=== PATIENT | male | born 1970 | race Caucasian/White ===

== ENCOUNTER 2017-05-18 15:27 | Emergency (ER) | payer OTHER, MEDICAID ==
[~2017-05-18] VITALS: Ht 177.8 cm; Wt 102.0 kg
[2017-05-18 15:27] VITALS: BP 134/88; PULSE 88; RESP 16; TEMP 98; O2SAT 96
[~2017-05-18 15:27] MED LIST: ATOM10 PO; OMEP10CA PO; TYLETAB34 PO; ZOFR4TAB3 SL
[2017-05-18 15:30] VITALS: BP 134/88; PULSE 88; RESP 16; O2SAT 96
[2017-05-18 17:27] LABS: AUTOMATED NEUTROPHIL # 4.3 TH/MM3 (1.8-7.7); BASOPHIL # 0.1 TH/MM3 (0-0.2); BASOPHIL % 0.9 % (0.0-2.0); EOSINOPHIL # 0.3 TH/MM3 (0-0.4); EOSINOPHIL % 3.6 % (0.0-4.0); HEMATOCRIT 44.4 % (39.0-51.0); HEMO FLAGS DIFF FINAL; LYMPH % 31.5 % (9.0-44.0); LYMPHOCYTE # 2.5 TH/MM3 (1.0-4.8); MEAN CELL VOLUME 86.9 FL (80.0-100.0); MEAN CORPUSCULAR HEMOGLOBIN 29.7 PG (27.0-34.0); MEAN CORPUSCULAR HGB CONC 34.2 % (32.0-36.0); MONO % 10.1 % (0.0-8.0); NEUT % 53.9 % (16.0-70.0); PLATELET COUNT 260 TH/MM3 (150-450); RED BLOOD COUNT 5.11 MIL/MM3 (4.50-5.90); RED CELL DISTRIBUTION WIDTH 13.7 % (11.6-17.2); WHITE BLOOD COUNT 8.1 TH/MM3 (4.0-11.0)
[2017-05-18 17:54] LABS: ALKALINE PHOSPHATASE 125 U/L (45-117); ALT (GPT) 78 U/L (12-78); ANION GAP 6 MEQ/L (5-15); AST (GOT) 60 U/L (15-37); BICARBONATE 30.1 MEQ/L (21.0-32.0); BLOOD UREA NITROGEN 12 MG/DL (7-18); CHLORIDE 103 MEQ/L (98-107); GLOMERULAR FILTRATION RATE 80 ML/MIN (>89); POTASSIUM 4.5 MEQ/L (3.5-5.1); SODIUM (NA) 139 MEQ/L (136-145); TOTAL BILIRUBIN ADULT 0.4 MG/DL (0.2-1.0)
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
--- NOTE | 2017-05-18 19:33 | PD ---
Physical Exam Date Seen by Provider: May 18, 2017 Time Seen by Provider: 19:31 Narrative The patient is a 47-year-old male was initially evaluated by the previous physician, Dr. Rivera. Please refer to the initial history, physical, diagnostic evaluation, treatment modality plan. Patient was signed out at 7 PM with MRI pending. Data Data Last Documented VS Vital Signs Date Time Temp Pulse Resp B/P Pulse Ox O2 Delivery O2 Flow Rate FiO2 05/18/17 20:12 98.4 86 18 137/99 97 Room Air Orders Complete Blood Count With Diff (05/18/17 16:41) Comprehensive Metabolic Panel (05/18/17 16:41) Iv Access Insert/Monitor (05/18/17 16:41) Lipase (05/18/17 16:41) Mri Brain W&W/O Contrast (05/18/17 18:04) Mra Brain W/O Contrast (Cow) (05/18/17 18:04) Mra Carotids W Contrast (05/18/17 18:04) Acetaminophen (Tylenol) (05/18/17 19:45) Gadodiamide Pf Inj (Omniscan Pf Inj) (05/18/17 20:31) Labs Laboratory Tests Test 05/18/17 16:40 White Blood Count 8.1 TH/MM3 Red Blood Count 5.11 MIL/MM3 Hemoglobin 15.2 GM/DL Hematocrit 44.4 % Mean Corpuscular Volume 86.9 FL Mean Corpuscular Hemoglobin 29.7 PG Mean Corpuscular Hemoglobin 34.2 % Concent Red Cell Distribution Width 13.7 % Platelet Count 260 TH/MM3 Mean Platelet Volume 8.4 FL Neutrophils (%) (Auto) 53.9 % Lymphocytes (%) (Auto) 31.5 % Monocytes (%) (Auto) 10.1 % Eosinophils (%) (Auto) 3.6 % Basophils (%) (Auto) 0.9 % Neutrophils # (Auto) 4.3 TH/MM3 Lymphocytes # (Auto) 2.5 TH/MM3 Monocytes # (Auto) 0.8 TH/MM3 Eosinophils # (Auto) 0.3 TH/MM3 Basophils # (Auto) 0.1 TH/MM3 CBC Comment DIFF FINAL Differential Comment Sodium Level 139 MEQ/L Potassium Level 4.5 MEQ/L Chloride Level 103 MEQ/L Carbon Dioxide Level 30.1 MEQ/L Anion Gap 6 MEQ/L Blood Urea Nitrogen 12 MG/DL Creatinine 1.00 MG/DL Estimat Glomerular Filtration 80 ML/MIN Rate Random Glucose 73 MG/DL Calcium Level 10.2 MG/DL Total Bilirubin 0.4 MG/DL Aspartate Amino Transf 60 U/L (AST/SGOT) Alanine Aminotransferase 78 U/L (ALT/SGPT) Alkaline Phosphatase 125 U/L Total Protein 7.9 GM/DL Albumin 4.2 GM/DL Lipase 96 U/L [facility] Medical Record Reviewed: Yes Supervised Visit with MARGOT: No Interpretation(s) Last Impressions Neck Magnetic Resonance Angiography 05/18/171803 Signed Impressions: Service Date/Time: Thursday, May 18, 2017 19:04 - CONCLUSION: Normal examination. Joseph Hernandez Jr., MD Head Magnetic Resonance Angiography 05/18/171803 Signed Impressions: Service Date/Time: Thursday, May 18, 2017 19:04 - CONCLUSION: Normal examination. Joseph Hernandez Jr., MD Brain MRI 05/18/171803 Signed Impressions: Service Date/Time: Thursday, May 18, 2017 19:04 - CONCLUSION: 1. Acute to subacute lacunar infarction involving the central portion of the elisa. Joseph Hernandez Jr., MD Laboratory Tests Test 05/18/17 16:40 White Blood Count 8.1 TH/MM3 Red Blood Count 5.11 MIL/MM3 Hemoglobin 15.2 GM/DL Hematocrit 44.4 % Mean Corpuscular Volume 86.9 FL Mean Corpuscular Hemoglobin 29.7 PG Mean Corpuscular Hemoglobin 34.2 % Concent Red Cell Distribution Width 13.7 % Platelet Count 260 TH/MM3 Mean Platelet Volume 8.4 FL Neutrophils (%) (Auto) 53.9 % Lymphocytes (%) (Auto) 31.5 % Monocytes (%) (Auto) 10.1 % Eosinophils (%) (Auto) 3.6 % Basophils (%) (Auto) 0.9 % Neutrophils # (Auto) 4.3 TH/MM3 Lymphocytes # (Auto) 2.5 TH/MM3 Monocytes # (Auto) 0.8 TH/MM3 Eosinophils # (Auto) 0.3 TH/MM3 Basophils # (Auto) 0.1 TH/MM3 CBC Comment DIFF FINAL Differential Comment Sodium Level 139 MEQ/L Potassium Level 4.5 MEQ/L Chloride Level 103 MEQ/L Carbon Dioxide Level 30.1 MEQ/L Anion Gap 6 MEQ/L Blood Urea Nitrogen 12 MG/DL Creatinine 1.00 MG/DL Estimat Glomerular Filtration 80 ML/MIN Rate Random Glucose 73 MG/DL Calcium Level 10.2 MG/DL Total Bilirubin 0.4 MG/DL Aspartate Amino Transf 60 U/L (AST/SGOT) Alanine Aminotransferase 78 U/L (ALT/SGPT) Alkaline Phosphatase 125 U/L Total Protein 7.9 GM/DL Albumin 4.2 GM/DL Lipase 96 U/L Differential Diagnosis Differential diagnosis includes acute CVA, subacute CVA, hemorrhagic stroke, tumor, MS, focal neurologic deficit. Narrative Course The patient was initially evaluated by the previous physician, Dr. Rivera. Please refer to the initial history, physical, diagnostic evaluation, treatment modality plan. The patient apparently had a stroke earlier this month and was admitted as stated. Hospital where he underwent evaluation, treatment with aspirin, was discharged home. The patient has had difficulty following up with a primary physician to get outpatient physical therapy and speech therapy. The patient told his family that he thought his speech was worse earlier today and subsequently to [facility] for further evaluation. The previous physician, Dr. Rivera, spoke with the on-call neurologist, Dr. Amezcua. The neurologist recommended MRI/MRA to evaluate for acute versus subacute CVA. If the CVAs acute, patient will be admitted, a subacute, patient will be advised to follow-up in an outpatient basis with his primary physician for ongoing speech therapy and physical therapy. I had a discussion with the patient, he states he was admitted last weekend for stroke and discharged 2 days later. The patient underwent echocardiogram, possible carotid ultrasound, and CTA, and was placed on a statin drug and aspirin, was discharged home. He was advised to follow with speech therapy and an outpatient basis. However, he states he is in flux between Medicaid and the [facility], is been unable to see speech therapy. The patient states he has some dysarthria earlier today which has improved. I discussed with the patient regarding 23 hour observation versus outpatient follow-up, sounds like he had a thorough workup on his previous admission there was no obvious reversible cause of stroke, cardiac telemetry monitoring reveals no ectopy or A. fib/A flutter. I had a discussion with the patient regarding 23 hour observation with speech therapy evaluation versus outpatient follow-up. I do not believe there is any indication for readmission and reevaluation as the patient appears of had a thorough workup on his previous admission earlier this week. The patient is able to maintain a airway, I am able to understand his speech, and he is no obvious weakness of the right side. After discussion with the patient he would prefer to follow-up as an outpatient. He will be provided a copy of his MRI/ MRA and lab results at discharge. Diagnosis Primary Impression: CVA (cerebral vascular accident) Qualified Code: I63.9 - Cerebrovascular accident (CVA), unspecified mechanism Patient Instructions: General Instructions Additional Instruction: Continue aspirin and medications as previously directed earlier this week on her previous admission. Follow-up with your primary physician or the [facility] for outpatient speech therapy evaluation and follow-up. Return if symptoms worsen or progress. Please provide the patient a copy of his MRI/MRA results and lab results at discharge. Med/Other Pt SpecificInfo: No Change to Meds Disposition: 01 DISCHARGE HOME Condition: Stable Vladimir Kunz MD May 18, 2017 19:33
[2017-05-18] MEDS ORDERED: ACETAMINOPHEN 325 MG TAB PO ONE (19:45)
[2017-05-18 20:12] VITALS: BP 137/99; PULSE 86; RESP 18; TEMP 98.4; O2SAT 97
--- NOTE | 2017-05-18 20:22 | RADRPT ---
EXAM DATE/TIME: 05/18/2017 19:04 [facility] COMPARISON: CT BRAIN W/O CONTRAST, April 19, 2017, 14:38. INDICATIONS : CVA. Right arm and right leg numbness and weakness. CONTRAST: 20 cc Omniscan (gadodiamide) IV MEDICAL HISTORY : Gastroesophageal reflux disease. Hypercholesterolemia. SURGICAL HISTORY : Fusion, lumbar. Right hip. ENCOUNTER: Subsequent ACUITY: 4-6 days PAIN SCORE: 3/10 LOCATION: cranial TECHNIQUE: Multiplanar, multisequence MRI of the brain was performed both prior to and following the administrat ion of paramagnetic contrast. FINDINGS: CEREBRUM: The ventricles are normal for age. No evidence of midline shift, mass lesion, hemorrhage or acute in farction. No extraaxial fluid collections are seen. The pituitary gland and suprasellar cistern are normal in configuration. WHITE MATTER: No significant signal abnormalities are seen in the white matter. POSTERIOR FOSSA: There is a 1 cm elliptical area of increased flair signal with associated restricted diffusion involv ing the central portion of the elisa.. The 4th ventricle is midline. The cerebellopontine angle is un remarkable. The cerebellar tonsils are normal in position. DIFFUSION IMAGING: Mild restricted diffusion involving the lesion within the central portion of the elisa. EXTRACRANIAL: The visualized portions of the orbits and paranasal sinuses are unremarkable. POST-CONTRAST: No abnormal areas of parenchymal or dural enhancement. No evidence of blood-brain barrier breakdown. CONCLUSION: 1. Acute to subacute lacunar infarction involving the central portion of the elisa. Joseph Hernandez Jr., MD on May 18, 2017 at 20:17 Board Certified Radiologist. This report was verified electronically.
[2017-05-18] MEDS ORDERED: GADODIAMIDE PF 287 MG/ML 20 ML VIAL (for RAD MRI) IV ONE (20:31)
--- NOTE | 2017-05-18 20:35 | RADRPT ---
EXAM DATE/TIME: 05/18/2017 19:04 [facility] COMPARISON: No previous studies available for comparison. INDICATIONS : CVA. Right arm and right leg numbness and weakness. MEDICAL HISTORY : Gastroesophageal reflux disease. Hypercholesterolemia. SURGICAL HISTORY : Fusion, lumbar. Right hip. ENCOUNTER: Subsequent ACUITY: 4-6 days PAIN SCORE: 3/10 LOCATION: cranial Please note a normal MRA of the brain does not entirely exclude the possibility of a small aneurysm, nor the possibility of distal intracranial vessel disease. TECHNIQUE: 3D time of flight MRA was performed. Source images, multiplanar STS MIP, and 3D volume MIP reconstru ctions were reviewed. FINDINGS: There is excellent visualization of the major intracranial arteries out to the second-order branch ve ssels. There is no evidence for aneurysm, vessel truncation or stenosis, and no evidence for vascula r malformation. CONCLUSION: Normal examination. Joseph Hernandez Jr., MD on May 18, 2017 at 20:20 Board Certified Radiologist. This report was verified electronically.
--- NOTE | 2017-05-18 20:37 | RADRPT ---
EXAM DATE/TIME: 05/18/2017 19:04 [facility] COMPARISON: No previous studies available for comparison. INDICATIONS : Stroke. Right arm and right leg numbness and weakness. CONTRAST: 20 cc Omniscan (gadodiamide) IV MEDICAL HISTORY : Gastroesophageal reflux disease. Hypercholesterolemia. SURGICAL HISTORY : Fusion, lumbar. Right hip. ENCOUNTER: Subsequent ACUITY: 1 week PAIN SCORE: 3/10 LOCATION: neck Percent stenosis is calculated using the diameter of the stenotic region over the diameter of the nor mal distal internal carotid artery. TECHNIQUE: Bolus infused MRA of the extracranial circulation was performed using a neurovascular coil. Post pro cessing was performed including rotating subvolume maximum intensity projections of each carotid jina ry, rotating full volume maximum intensity projections of both carotid arteries, sagittal and coronal sliding thin slab reformations of each carotid artery, and left oblique sliding thin slab reformatio n through the aortic arch to include the origin of the arch branch vessels. FINDINGS: AORTIC ARCH: There is a four vessel origin of the great vessels from the aorta. The left vertebral artery arises d irectly off the arch. No evidence of ostial narrowing. RIGHT CAROTID: The common carotid artery is intact. The carotid bulb has a normal configuration without ulceration or narrowing. The internal carotid artery lumen is smooth without stenosis. The external carotid ar matt is intact. LEFT CAROTID: The common carotid artery is intact. The carotid bulb has a normal configuration without ulceration or narrowing. The internal carotid artery lumen is smooth without stenosis. The external carotid ar matt is intact. VERTEBRALS: The vertebral arteries have a symmetric diameter. No stenotic lesions are seen. CONCLUSION: Normal examination. Joseph Hernandez Jr., MD on May 18, 2017 at 20:33 Board Certified Radiologist. This report was verified electronically.
== END 2017-05-18 22:26 | disposition home or self-care (01) ==
LOC: NEPE 15:27
DX: I63.9 Cerebral infarction, unspecified (principal); I69.322 Dysarthria following cerebral infarction; I69.351 Hemiplegia and hemiparesis following cerebral infarction affecting right dominant side; I69.398 Other sequelae of cerebral infarction; E78.00 Pure hypercholesterolemia, unspecified
CPT/HCPCS: 70544; 70548; 70553; 80053; 83690; 85025; 99285; A9579

== ENCOUNTER 2017-10-15 03:29 | Inpatient (IN) | payer MEDICAID, OTHER ==
[~2017-10-15 03:29] MED LIST changes: +GABA300C5 PO; +LIPI10TA PO; +PLAV75TA29 PO; +XANA1TAB2 PO
[2017-10-15] MEDS ORDERED: DEXTROSE 50% IN WATER 50 ML VIAL(D50) IV PUSH PRN ×2 (04:00→13:45)
[2017-10-15] MEDS ORDERED: SODIUM CHLORIDE 0.9% FLUSH 5 ML FLUSH IV FLUSH PRN ×2 (04:00→13:45)
[2017-10-15] MEDS ORDERED: GLUCAGON 1 MG/ML VIAL OTHER PRN ×2 (04:00→13:45)
[2017-10-15] MEDS: INSULIN ASPART SUPPLEMENTAL SCALE SQ SCH ×4 (08:00→21:00)
[2017-10-15] MEDS: SODIUM CHLORIDE 0.9% FLUSH 5 ML FLUSH IV FLUSH SCH ×2 (08:29→21:00)
[2017-10-15 08:30] VITALS: BP 137/89; PULSE 75; RESP 16; TEMP 97.6; O2SAT 95
[2017-10-15 12:30] VITALS: PULSE 71
[2017-10-15 12:40] VITALS: BP 124/17; PULSE 73; RESP 16; TEMP 97.9; O2SAT 96
[2017-10-15] MEDS: ACETAMINOPHEN/CODEINE 300 MG/30 MG TAB PO PRN ×3 (13:40→21:00)
[2017-10-15] MEDS ORDERED: ENALAPRILAT 1.25 MG/ML VIAL IV PUSH PRN (13:45)
[2017-10-15] MEDS ORDERED: ACETAMINOPHEN 325 MG TAB PO PRN (13:45)
[2017-10-15] MEDS ORDERED: LORazepam 2 MG/ML VIAL IV PUSH ONE (13:45)
[2017-10-15] MEDS ORDERED: ALPRAZolam 1 MG TAB PO PRN (13:45)
[2017-10-15] MEDS ORDERED: MAGNESIUM HYDROXIDE SUSP 30 ML CUP PO PRN (14:15)
[2017-10-15] MEDS ORDERED: ONDANSETRON HCL 4 MG/2 ML VIAL IVP PRN (14:15)
[2017-10-15] MEDS ORDERED: LACTULOSE SYRUP 20 GM/30 ML CUP PO PRN (14:15)
[2017-10-15] MEDS ORDERED: NALOXONE HCL 0.4 MG/ML AMP IV PUSH PRN (14:15)
[2017-10-15] MEDS ORDERED: SENNOSIDES 8.6 MG TAB PO PRN (14:15)
[2017-10-15] MEDS ORDERED: BISACODYL 10 MG SUPP RECTAL PRN (14:15)
[2017-10-15] MEDS ORDERED: ALPRAZolam 0.5 MG TAB PO PRN (14:15)
[2017-10-15 14:19] LABS: AUTOMATED NEUTROPHIL # 4.9 TH/MM3 (1.8-7.7); BASOPHIL # 0.1 TH/MM3 (0-0.2); EOSINOPHIL # 0.2 TH/MM3 (0-0.4); EOSINOPHIL % 2.5 % (0.0-4.0); HEMATOCRIT 44.6 % (39.0-51.0); HEMO FLAGS DIFF FINAL; LYMPH % 27.5 % (9.0-44.0); LYMPHOCYTE # 2.3 TH/MM3 (1.0-4.8); MEAN CELL VOLUME 84.5 FL (80.0-100.0); MEAN CORPUSCULAR HEMOGLOBIN 28.8 PG (27.0-34.0); MEAN CORPUSCULAR HGB CONC 34.1 % (32.0-36.0); MONO % 9.3 % (0.0-8.0); NEUT % 59.7 % (16.0-70.0); PLATELET COUNT 243 TH/MM3 (150-450); RED BLOOD COUNT 5.27 MIL/MM3 (4.50-5.90); RED CELL DISTRIBUTION WIDTH 14.2 % (11.6-17.2); WHITE BLOOD COUNT 8.2 TH/MM3 (4.0-11.0)
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
[2017-10-15 14:46] LABS: ANION GAP 7 MEQ/L (5-15); BICARBONATE 28.6 MEQ/L (21.0-32.0); BLOOD UREA NITROGEN 7 MG/DL (7-18); CHLORIDE 106 MEQ/L (98-107); GLOMERULAR FILTRATION RATE 75 ML/MIN (>89); POTASSIUM 4.5 MEQ/L (3.5-5.1); SODIUM (NA) 142 MEQ/L (136-145)
[2017-10-15] MEDS: CLOPIDOGREL 75 MG TAB PO SCH (15:11)
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
[2017-10-15] MEDS ORDERED: LORazepam 2 MG/ML VIAL IV PUSH SCH (16:00)
[2017-10-15 16:35] VITALS: BP 146/92; PULSE 74; RESP 18; TEMP 97.2; O2SAT 96
--- NOTE | 2017-10-15 16:36 | RADRPT ---
EXAM DATE/TIME: 10/15/2017 15:39 [facility] COMPARISON: No previous studies available for comparison. INDICATIONS : CVA. MEDICAL HISTORY : Cerebrovascular disease. Arthritis. SURGICAL HISTORY : Fusion, lumbar. Right JUAN ANTONIO. ENCOUNTER: Subsequent ACUITY: 1 day PAIN SCORE: 5/10 LOCATION: cranial TECHNIQUE: Multiplanar, multisequence MRI of the brain was performed without contrast. FINDINGS: MRI of the brain is performed in sagittal, axial and coronal planes. The craniocervical junction and midline structures are unremarkable. Diffusion weighted images demonstrate no abnormality. There is n o evidence of acute cortical infarction, acute hemorrhage, mass effect or midline shift is seen. Post erior fossa structures are unremarkable. CONCLUSION: 1. No evidence of acute intracranial pathology. No masses are identified. Oscar Polanco MD on October 15, 2017 at 16:29 Board Certified Radiologist. This report was verified electronically.
[2017-10-15] MEDS: SODIUM CHLOR 0.9% 1000 ML INJ 1,000 ML IV SCH (16:49)
[2017-10-15] MEDS ORDERED: INSULIN ASPART SUPPLEMENTAL SCALE SQ SCH (17:00)
--- NOTE | 2017-10-15 17:06 | RADRPT ---
EXAM DATE/TIME: 10/15/2017 15:39 [facility] COMPARISON: MRA BRAIN W/O CONTRAST, May 18, 2017, 19:04. INDICATIONS : CVA. MEDICAL HISTORY : Cerebrovascular disease. Arthritis. SURGICAL HISTORY : Fusion, lumbar. Right JUAN ANTONIO. ENCOUNTER: Subsequent ACUITY: 1 day PAIN SCORE: 5/10 LOCATION: cranial Please note a normal MRA of the brain does not entirely exclude the possibility of a small aneurysm, nor the possibility of distal intracranial vessel disease. TECHNIQUE: 3D time of flight MRA was performed. Source images, multiplanar STS MIP, and 3D volume MIP reconstru ctions were reviewed. FINDINGS: Anterior circulation: The internal carotid arteries demonstrate no abnormality or atherosclerotic change. A1 segments and m ore distal anterior cerebral arteries are symmetric and within normal limits. The middle cerebral art leigha branches demonstrate symmetric flow related enhancement. No aneurysm or high-grade stenosis is id entified. Posterior circulation: There are patent posterior cerebral arteries bilaterally. Vertebral arteries are codominant. The basi lar artery and posterior cerebral arteries demonstrate no significant stenosis or abnormality. No ane urysm is visualized. CONCLUSION: Normal examination of the intracranial vasculature. Bony Yung MD on October 15, 2017 at 17:01 Board Certified Radiologist. This report was verified electronically.
[2017-10-15 17:32] LABS: HEMOGLOBIN A1b 1.6 %; HEMOGLOBIN Ao 86.1 %; HEMOGLOBIN LA1C 1.8 %; HEMOGLOBIN P3 3.6 %
[2017-10-15 20:00] VITALS: PULSE 68
[2017-10-15 20:31] VITALS: BP 157/92; PULSE 79; RESP 18; TEMP 97.5; O2SAT 95
[2017-10-15] MEDS ORDERED: SODIUM CHLORIDE 0.9% FLUSH 5 ML FLUSH IV FLUSH SCH (21:00)
[2017-10-15] MEDS: DOCUSATE SODIUM 50 MG/SENNA 8.6 MG TAB PO SCH (21:00)
[2017-10-15] MEDS: ATORVASTATIN 10 MG TAB PO SCH (21:00)
[2017-10-15] MEDS: GABAPENTIN 300 MG CAP PO SCH (21:01)
[2017-10-16] VITALS (9 sets, daily range): BP systolic 121–140; BP diastolic 62–84; PULSE 68–88; RESP 18–20; TEMP 97.6–98.3; O2SAT 90–95
[2017-10-16] MEDS: SODIUM CHLOR 0.9% 1000 ML INJ 1,000 ML IV SCH ×2 (05:54→18:12)
[2017-10-16] MEDS: INSULIN ASPART SUPPLEMENTAL SCALE SQ SCH ×4 (08:00→20:14)
[2017-10-16] MEDS: PANTOPRAZOLE SOD 20 MG DELAYED RELEASE TAB PO SCH (08:08)
[2017-10-16] MEDS: DOCUSATE SODIUM 50 MG/SENNA 8.6 MG TAB PO SCH ×2 (08:08→20:14)
[2017-10-16] MEDS: GABAPENTIN 300 MG CAP PO SCH ×2 (08:08→20:13)
[2017-10-16] MEDS: CLOPIDOGREL 75 MG TAB PO SCH (08:08)
[2017-10-16] MEDS: ACETAMINOPHEN/CODEINE 300 MG/30 MG TAB PO PRN ×4 (08:08→22:11)
[2017-10-16] MEDS: SODIUM CHLORIDE 0.9% FLUSH 5 ML FLUSH IV FLUSH SCH ×2 (08:10→20:12)
--- NOTE | 2017-10-16 08:55 | PD.PN.STU ---
Subjective Remarks Found in bed with t-shirt covering his eyes, due to photophobia and headache. Reports that his headache has not improved and he is still nauseous. He hasn't vomited. He has been able to keep his meals down. No constipation or diarrhea, had bowel movement yesterday. Denies lightheadness, blurry vision associated with headache. No chest pain or SOB. Objective Vitals Vital Signs Date Time Temp Pulse Resp B/P (MAP) Pulse Ox O2 Delivery O2 Flow Rate FiO2 10/16/17 08:43 97.6 72 18 133/82 (99) 93 10/16/17 05:11 97.6 68 18 121/62 (81) 95 10/16/17 00:18 98.3 70 18 136/68 (90) 95 10/15/17 20:31 97.5 79 18 157/92 (113) 95 10/15/17 20:00 68 10/15/17 16:35 97.2 74 18 146/92 (110) 96 10/15/17 12:40 97.9 73 16 124/17 (52) 96 10/15/17 12:30 71 I/O 10/15/17 10/15/17 10/15/17 10/16/17 10/16/17 10/16/17 07:00 15:00 23:00 07:00 15:00 23:00 Intake Total 194 ml 1598 ml Balance 194 ml 1598 ml Intake IV Total 194 ml 1598 ml Result Diagram: 10/15/17 1335 10/15/17 1339 Imaging Last Impressions Head Magnetic Resonance Angiography 10/15/17 0000 Signed Impressions: Service Date/Time: Sunday, October 15, 2017 15:39 - CONCLUSION: Normal examination of the intracranial vasculature. Bony Yung MD Brain MRI 10/15/17 0000 Signed Impressions: Service Date/Time: Sunday, October 15, 2017 15:39 - CONCLUSION: 1. No evidence of acute intracranial pathology. No masses are identified. Oscar Polanco MD Objective Remarks GENERAL: This is a middle age male, well-nourished, well-developed patient, in some distress, with photophobia and headache, cloth covering his eyes. SKIN: No rashes, ecchymoses or lesions. Cool and dry. HEAD: Atraumatic. Normocephalic. No temporal or scalp tenderness. EYES: Pupils equal round and reactive. Extraocular motions intact. No scleral icterus. No injection or drainage. ENT: Nose without bleeding, purulent drainage or septal hematoma. Throat without erythema, tonsillar hypertrophy or exudate. Uvula midline. Airway patent. NECK: Trachea midline. No JVD or lymphadenopathy. Supple, nontender, no meningeal signs. CARDIOVASCULAR: Regular rate and rhythm without murmurs, gallops, or rubs. RESPIRATORY: Clear to auscultation. Breath sounds equal bilaterally. No wheezes , rales, or rhonchi. GASTROINTESTINAL: Abdomen soft, non-tender, nondistended. No hepato-splenomegaly , or palpable masses. No guarding. MUSCULOSKELETAL: Extremities without clubbing, cyanosis, or edema. No joint tenderness, effusion, or edema noted. No calf tenderness. Negative Homans sign bilaterally. NEUROLOGICAL: Awake, alert and oriented x4. CN 2-12 grossly intact. Decreased light touch sensation in RUE and RLE. 4/5 muscle strength in RUE/RLE. 5/5 muscle strength in LUE/SHONDA. Normal rthxyg-kw-foiz test. Normal rapid alternating hand movements. Normal heel to valenzuela test. A/P Assessment and Plan 47 year old male with previous history of CVA with residual right-sided weakness , dysarthria, multiple TIAs who came to ER for further evaluation with worsening weakness and dysarthria. History of CVA in April 2017, left pontine ischemic stroke, now with worsening right-sided weakness and dysarthria, expressive aphasia. Headaches, possible migraine headaches CT head on admission reviewed, findings discussed with Dr. Yanes in neurology, shows old left ischemic stroke MRI/MRA of brain [place] [facility] [place] reviewed no evidence of acute process, findings discussed with Dr Yanes neuro Patient still with headache. Will startdepakote and give one dose of steroids. Discussed w with Dr Yanes. Keep normotensive, normoglycemic. DC IVF NS at 75cc/hr Monitor closely blood pressure Monitor on telemetry Keep normal glycemic. Insulin sliding scale, accu-checks Check A1c, lipid profile. CBC, CMP reviewed and normal. Patient is taking plavix at home. Start Plavix. Awaiting for MRI. Continue atorvastatin, follow-up with lipid profile results. Consult PT/OT/ST Passed swallow evaluation, advance diet to Healthy Heart diet. Check EEG Neuro checks GERD: resume PPI ADHD: hold atomoxetine Insomnia: patient takes alprazolam up to 3mg at night, discuss with neurology. Will give Ativan 0.5mg q6hrs PRN, watch for withdrawal symptoms and for seizures. DVT prophylaxis: ambulation, LANDON/SCD Discussed with the patient, nurse, Dr Yanes neurology, Dr Anthony psych The patient was seen and examined. Case discussed with Amna Gregg MS III at length. Agree with above note Sweetie Gregg M3 Oct 16, 2017 08:55 Elo Ortiz MD Oct 16, 2017 15:42
[2017-10-16] MEDS ORDERED: CLOPIDOGREL 75 MG TAB PO SCH (09:00)
[2017-10-16] MEDS ORDERED: ASPIRIN 81 MG CHEW TAB PO SCH (09:00)
--- NOTE | 2017-10-16 15:35 | HHI.PR ---
Subjective Remarks Found in bed. Covering his eyes with his T shirt due to photophobia and headache. Reports that his headache has not improved and he is still nauseous. Headache are frontal, nonradiating. Associated blurry vision. He hasn't vomited. He has been able to keep his meals down. No constipation or diarrhea, had bowel movement yesterday. Denies lightheadedness, blurry vision associated with headache. No chest pain or SOB. Objective Vitals Vital Signs Date Time Temp Pulse Resp B/P (MAP) Pulse Ox O2 Delivery O2 Flow Rate FiO2 10/16/17 12:27 98.1 76 18 125/65 (85) 93 10/16/17 11:02 93 10/16/17 08:43 97.6 72 18 133/82 (99) 93 10/16/17 05:11 97.6 68 18 121/62 (81) 95 10/16/17 00:18 98.3 70 18 136/68 (90) 95 10/15/17 20:31 97.5 79 18 157/92 (113) 95 10/15/17 20:00 68 10/15/17 16:35 97.2 74 18 146/92 (110) 96 I/O 10/15/17 10/15/17 10/15/17 10/16/17 10/16/17 10/16/17 06:59 14:59 22:59 06:59 14:59 22:59 Intake Total 194 ml 1598 ml Balance 194 ml 1598 ml Intake IV Total 194 ml 1598 ml Result Diagram: 10/15/17 1335 10/15/17 1339 Imaging Last Impressions Head Magnetic Resonance Angiography 10/15/17 0000 Signed Impressions: Service Date/Time: Sunday, October 15, 2017 15:39 - CONCLUSION: Normal examination of the intracranial vasculature. Bony Yung MD Brain MRI 10/15/17 0000 Signed Impressions: Service Date/Time: Sunday, October 15, 2017 15:39 - CONCLUSION: 1. No evidence of acute intracranial pathology. No masses are identified. Oscar Polanco MD Objective Remarks GENERAL: This is a middle age male, well-nourished, well-developed patient, in some distress, with photophobia and headache, covering his eyes with his T shirt. SKIN: No rashes, ecchymoses or lesions. Cool and dry. HEAD: Atraumatic. Normocephalic. No temporal or scalp tenderness. EYES: Pupils equal round and reactive. Extraocular motions intact. No scleral icterus. No injection or drainage. ENT: Nose without bleeding, purulent drainage or septal hematoma. Throat without erythema, tonsillar hypertrophy or exudate. Uvula midline. Airway patent. NECK: Trachea midline. No JVD or lymphadenopathy. Supple, nontender, no meningeal signs. CARDIOVASCULAR: Regular rate and rhythm without murmurs, gallops, or rubs. RESPIRATORY: Clear to auscultation. Breath sounds equal bilaterally. No wheezes , rales, or rhonchi. GASTROINTESTINAL: Abdomen soft, non-tender, nondistended. No hepato-splenomegaly , or palpable masses. No guarding. MUSCULOSKELETAL: Extremities without clubbing, cyanosis, or edema. No joint tenderness, effusion, or edema noted. No calf tenderness. Negative Homans sign bilaterally. NEUROLOGICAL: Awake, alert and oriented x4. CN 2-12 grossly intact. Decreased light touch sensation in RUE and RLE. 4/5 muscle strength in RUE/RLE. 5/5 muscle strength in LUE/SHONDA. Normal [id number] test. Normal rapid alternating hand movements. Normal heel to valenzuela test. A/P Assessment and Plan 47 year old male with previous history of CVA with residual right-sided weakness , dysarthria, multiple TIAs who came to ER for further evaluation with worsening weakness and dysarthria. History of CVA in April 2017, left pontine ischemic stroke, now with worsening right-sided weakness and dysarthria, expressive aphasia. Headaches, possible migraine headaches CT head on admission reviewed, findings discussed with Dr. Yanes in neurology, shows old left ischemic stroke MRI/MRA of brain [place] reviewed no evidence of acute process, findings discussed with Dr Yanes neuro Patient still with headache. Will startdepakote and give one dose of steroids. Discussed w with Dr Yanes. Hold blood pressure medications allow permissive hypertension. PRN antihypertensives if SBP > 220 Start IVF NS at 75cc/hr Monitor closely blood pressure Monitor on telemetry Keep normal glycemic. Insulin sliding scale, accu-checks Check A1c, lipid profile. CBC, CMP reviewed and normal. Patient is taking plavix at home. Start Plavix. Awaiting for MRI. Continue atorvastatin, follow-up with lipid profile results. Consult PT/OT/ST Passed swallow evaluation, advance diet to Healthy Heart diet. Check EEG Neuro checks GERD: resume PPI ADHD: hold atomoxetine Insomnia: patient takes alprazolam up to 3mg at night, discuss with neurology. Will give Ativan 0.5mg q6hrs PRN, watch for withdrawal symptoms and for seizures. DVT prophylaxis: ambulation, LANDON/SCD Discussed with the patient, nurse, Dr Yanes neurology CosmElo cain MD Oct 16, 2017 15:35
[2017-10-16] MEDS ORDERED: methylPREDNISolone SOD SUCC 125 MG/2 ML VIAL IV PUSH ONE (16:00)
[2017-10-16] MEDS ORDERED: VALPROATE INJ 500 MG in SODIUM CHLORIDE 0.9% INJ 100 ML IV ONE (17:00)
--- NOTE | 2017-10-16 18:58 | MG ---
cc: TERE FLETCHER MD Lab No: Date: 10/16/17 Age: 47 Sex: M Race: REQUESTING PHYSICIAN Dr. Ortiz An EEG was obtained on this 47-year-old patient being evaluated for confusion, aphasia and right-sided weakness. MRI brain negative. The EEG is showing intermixed bilateral slowing comprised of some theta and even some delta rhythms intermittently. There is limited alpha activity bilaterally and there are beta rhythms frontally bilaterally. At times, there is a hint that the rhythms on the left hemisphere are slower, although this is difficult to be precise with some intermittent higher amplitude activity on the left. There are some sharp waves but no paroxysmal discharge. The patient is intermittently drowsy and there is probable sleep stage II as well when some sleepy spindles are noted and even some vertex sharp activity. Photic stimulation was unremarkable. INTERPRETATION Abnormal EEG because of bilateral mild slowing, possibly left more than right, although difficult to be precise. No paroxysmal epileptiform discharge present. Suggest followup EEGs. MD DAXA Littlejohn/ /6:31 PM /6:59 PM
[2017-10-16] MEDS: ATORVASTATIN 10 MG TAB PO SCH (20:13)
[2017-10-16] MEDS ORDERED: DIVALPROEX SODIUM E.R. 500 MG TAB PO SCH (21:00)
[2017-10-17] VITALS: BP 139/64; PULSE 72; RESP 20; TEMP 97.7; O2SAT 94
[2017-10-17] MEDS: ACETAMINOPHEN/CODEINE 300 MG/30 MG TAB PO PRN ×2 (05:09→09:13)
[2017-10-17 08:00] VITALS: PULSE 87
[2017-10-17] MEDS: INSULIN ASPART SUPPLEMENTAL SCALE SQ SCH (08:00)
[2017-10-17 08:12] VITALS: BP 154/74; PULSE 87; RESP 20; TEMP 97.6; O2SAT 93
[2017-10-17] MEDS: SODIUM CHLOR 0.9% 1000 ML INJ 1,000 ML IV SCH (08:30)
[2017-10-17] MEDS ORDERED: DEPA500T3 PO (08:48)
[2017-10-17] MEDS ORDERED: MEDR4PAK PO (08:48)
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
--- NOTE | 2017-10-17 08:57 | PD.PN.STU ---
Subjective Remarks Patient is found sitting in bed eating breakfast. His eyes are not covered, no photophobia today. He reports that his strength is returning although he still has a headache. He is still requesting for a "stronger IV pain medication" for headaches. Objective Vitals Vital Signs Date Time Temp Pulse Resp B/P (MAP) Pulse Ox O2 Delivery O2 Flow Rate FiO2 10/17/17 08:12 97.6 87 20 154/74 (100) 93 10/17/17 06:34 18 10/17/17 00:00 97.7 72 20 139/64 (89) 94 10/16/17 22:32 95 10/16/17 20:00 78 10/16/17 20:00 98.2 82 20 140/84 (102) 94 10/16/17 18:30 72 10/16/17 16:00 98.0 88 18 129/69 (89) 90 10/16/17 12:27 98.1 76 18 125/65 (85) 93 10/16/17 11:02 93 I/O 10/16/17 10/16/17 10/16/17 10/17/17 10/17/17 10/17/17 07:00 15:00 23:00 07:00 15:00 23:00 Intake Total 1598 ml 745 ml 720 ml Balance 1598 ml 745 ml 720 ml Intake Oral 640 ml 720 ml IV Total 1598 ml 105 ml # Voids 8 4 # Bowel Movements 1 Result Diagram: 10/15/17 1335 10/15/17 1339 Objective Remarks GENERAL: This is a middle age male, well-nourished, well-developed patient, in no apparent distress. SKIN: No rashes, ecchymoses or lesions. Cool and dry. HEAD: Atraumatic. Normocephalic. No temporal or scalp tenderness. EYES: Pupils equal round and reactive. Extraocular motions intact. No scleral icterus. No injection or drainage. ENT: Nose without bleeding, purulent drainage or septal hematoma. Throat without erythema, tonsillar hypertrophy or exudate. Uvula midline. Airway patent. NECK: Trachea midline. No JVD or lymphadenopathy. Supple, nontender, no meningeal signs. CARDIOVASCULAR: Regular rate and rhythm without murmurs, gallops, or rubs. RESPIRATORY: Clear to auscultation. Breath sounds equal bilaterally. No wheezes , rales, or rhonchi. GASTROINTESTINAL: Abdomen soft, non-tender, nondistended. No hepato-splenomegaly , or palpable masses. No guarding. MUSCULOSKELETAL: Extremities without clubbing, cyanosis, or edema. No joint tenderness, effusion, or edema noted. No calf tenderness. Negative Homans sign bilaterally. NEUROLOGICAL: Awake, alert and oriented x4. CN 2-12 grossly intact. 4/5 muscle strength in RUE/RLE. 5/5 muscle strength in LUE/SHONDA. Normal hocjfk-ev-uftr test. Normal rapid alternating hand movements. Normal heel to valenzuela test. A/P Assessment and Plan 47 year old male with previous history of CVA with residual right-sided weakness , dysarthria, multiple TIAs who came to ER for further evaluation with worsening weakness and dysarthria. History of CVA in April 2017, left pontine ischemic stroke, now with worsening right-sided weakness and dysarthria, expressive aphasia. Headaches, possible migraine headaches CT head on admission reviewed, findings discussed with Dr. Yanes in neurology, shows old left ischemic stroke MRI/MRA of brain [place] reviewed no evidence of acute process, findings discussed with Dr Yanes neuro Patient still with headache. Will startdepakote and give one dose of steroids. Discussed w with Dr Yanes. Keep normotensive, normoglycemic. DC IVF NS at 75cc/hr Monitor closely blood pressure Monitor on telemetry Keep normal glycemic. Insulin sliding scale, accu-checks Check A1c, lipid profile. CBC, CMP reviewed and normal. Patient is taking plavix at home. Start Plavix. Awaiting for MRI. Continue atorvastatin, follow-up with lipid profile results. Consult PT/OT/ST Passed swallow evaluation, advance diet to Healthy Heart diet. EEG reviewed, no evidence of seizure disorder. Neuro checks GERD: resume PPI ADHD: hold atomoxetine Insomnia: patient takes alprazolam up to 3mg at night, discuss with neurology. Will give Ativan 0.5mg q6hrs PRN, watch for withdrawal symptoms and for seizures. DVT prophylaxis: ambulation, LANDON/SCD Discussed with the patient, nurse, Dr Yanes neurology, Dr Anthony psych The patient was seen and examined. Case discussed with Sweetie Gregg MS III at length. Agree with above note Sweetie Gregg M3 Oct 17, 2017 08:57 Elo Ortiz MD Oct 17, 2017 16:43
[2017-10-17] MEDS: SODIUM CHLORIDE 0.9% FLUSH 5 ML FLUSH IV FLUSH SCH (09:00)
[2017-10-17] MEDS ORDERED: predniSONE 50 MG TAB PO SCH (09:00)
[2017-10-17] MEDS: CLOPIDOGREL 75 MG TAB PO SCH (09:13)
[2017-10-17] MEDS: GABAPENTIN 300 MG CAP PO SCH (09:13)
[2017-10-17] MEDS: PANTOPRAZOLE SOD 20 MG DELAYED RELEASE TAB PO SCH (09:13)
[2017-10-17] MEDS: DOCUSATE SODIUM 50 MG/SENNA 8.6 MG TAB PO SCH (09:13)
[2017-10-17] MEDS ORDERED: DIVALPROEX SODIUM E.R. 500 MG TAB PO SCH (21:00)
--- NOTE | 2017-10-21 14:20 | PD.CONS ---
Assessment and Plan Plan Consult received per stroke order set. EMR reviewed and brain MRI negative for acute stroke. Consult deferred. Please reconsult as needed. Zabrina Shaw MD Oct 21, 2017 14:20
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
== END 2017-10-17 10:48 | disposition home or self-care (01) | DRG 103 ==
LOC: NEDDLT 03:29 → N05A 07:37
PROVIDERS: ADMIT Hospitalist; ATTEND Hospitalist
DX: G43.109 Migraine with aura, not intractable, without status migrainosus (principal); I69.351 Hemiplegia and hemiparesis following cerebral infarction affecting right dominant side; R47.01 Aphasia; K21.9 Gastro-esophageal reflux disease without esophagitis; G47.00 Insomnia, unspecified; R11.0 Nausea; F12.90 Cannabis use, unspecified, uncomplicated; F40.240 Claustrophobia; F43.22 Adjustment disorder with anxiety; F90.9 Attention-deficit hyperactivity disorder, unspecified type; V49.9XXS Car occupant (driver) (passenger) injured in unspecified traffic accident, sequela; Z79.02 Long term (current) use of antithrombotics/antiplatelets; Z87.891 Personal history of nicotine dependence; Z96.641 Presence of right artificial hip joint
CPT/HCPCS: 70450; 70498; 70544; 70551; 80048; 80053; 80061; 80307; 82948; 83036; 84484; 85025; 85610; 85730; 93005; 95819; 99285; J2060; J2930; J7030; J7512; Q9967